=== PATIENT | male | born 1965 | race Caucasian/White ===

== ENCOUNTER 2023-07-31 15:42 | Inpatient (IN) | payer OTHER, BC ==
[2023-07-31 17:37] VITALS: BMI 24.3
[2023-07-31] MEDS ORDERED: P-EPHED 60MG/TRIPROLIDI 2.5MG TABLET PO PRN (18:25)
[2023-07-31] MEDS ORDERED: IBUPROFEN 400 MG TABLET (FP) PO PRN (18:25)
[2023-07-31] MEDS ORDERED: IBUPROFEN 600 MG TABLET (FP) PO PRN (18:25)
[2023-07-31] MEDS ORDERED: ONDANSETRON *ODT* 4 MG TABLET SL PRN (18:25)
[2023-07-31] MEDS ORDERED: NALOXONE HCL (KLOXXADO) 8 MG SPRAY NS PRN (18:25)
[2023-07-31] MEDS ORDERED: guaiFENesin 600 MG TABLET.ER (FP) PO PRN (18:25)
[2023-07-31] MEDS ORDERED: MAGNESIUM HYDROX 2400MG/30ML ORAL SUSPENSION 30 ML CUP PO PRN (18:25)
[2023-07-31] MEDS ORDERED: MAG HYDROX/AL HYDROX/SIMETH 30 ML UNIT-DOSE CUP PO PRN (18:25)
[2023-07-31] MEDS ORDERED: NALOXONE HCL 0.4 MG/ML VIAL IM PRN (18:25)
[2023-07-31] MEDS ORDERED: BENZONATATE 200 MG CAPSULE PO PRN (18:25)
[2023-07-31] MEDS ORDERED: BENZOCAINE/MENTHOL (CHLORASEPTIC ) LOZENGE MM PRN (18:25)
[2023-07-31] MEDS ORDERED: BISMUTH SUBSALICYLATE 524 MG/30 ML PO PRN (18:25)
[2023-07-31] MEDS ORDERED: POLYETHYLENE GLYCOL (HEALTHYLAX) 3350 17 GM PACKET PO PRN (18:25)
[2023-07-31] MEDS ORDERED: LOPERAMIDE HCL 2 MG CAPSULE PO PRN (18:25)
[2023-07-31] MEDS ORDERED: ACETAMINOPHEN 325 MG TABLET (FP) PO PRN (18:25)
[2023-07-31] MEDS ORDERED: DICYCLOMINE HCL 10 MG CAPSULE PO PRN (18:25)
[2023-07-31] MEDS: hydrOXYzine PAMOATE 25 MG CAPSULE (FP) PO PRN (19:31)
[2023-07-31] MEDS: NICOTINE POLACRILEX 2 MG GUM BUC PRN ×2 (19:33→22:10)
[2023-07-31] MEDS: MELATONIN 5 MG TABLETS PO SCH (22:08)
[2023-07-31] MEDS: THIAMINE HCL 100 MG TABLET (FP) PO SCH (22:08)
[2023-07-31] MEDS: METHOCARBAMOL 500 MG TABLET PO PRN (22:09)
[2023-08-01] MEDS: NICOTINE POLACRILEX 2 MG GUM BUC PRN ×3 (08:54→21:03)
[2023-08-01] MEDS: NICOTINE 14 MG/24 HOURS TOPICAL PATCH TD SCH (10:17)
[2023-08-01] MEDS: hydrOXYzine PAMOATE 25 MG CAPSULE (FP) PO PRN ×2 (10:18→17:28)
[2023-08-01] MEDS: PRENATAL VITAMINS W/ FOLIC ACID TABLET (FP) PO SCH (10:18)
[2023-08-01] MEDS: METHOCARBAMOL 500 MG TABLET PO PRN ×2 (10:18→17:28)
[2023-08-01] MEDS ORDERED: methaDONE HCL 10 MG TABLET (FOR DETOX USE ONLY) PO ONE (11:11)
[2023-08-01 11:13] LABS: HEMATOCRIT 50.9 % (35.4-49); HEMOGLOBIN 16.4 GM/dL (11.7-16.9); MCH 29.4 pg (25.7-33.7); MCHC 32.2 g/dl (32.0-35.9); MEAN CELL VOLUME 91.2 fl (80-96); MEAN PLT VOLUME 8.4 fl (7.5-11.1); PLATELET COUNT 286 10^3/uL (134-434); RBC 5.58 M/mm3 (4.00-5.60); RDW 13.6 % (11.9-15.9); WHITE BLOOD COUNT 11.7 K/mm3 (4.0-10.0)
[2023-08-01] MEDS: cloNIDine HCL 0.1 MG TABLET PO PRN ×2 (11:27→18:49)
[2023-08-01 11:59] LABS: POTASSIUM 4.6 mmol/L (3.5-5.1)
[2023-08-01 12:13] LABS: CALCIUM 9.9 mg/dL (8.5-10.1)
[2023-08-01 12:14] LABS: ALBUMIN 4.1 g/dl (3.4-5.0); BLOOD UREA NITROGEN 14.3 mg/dL (7-18)
[2023-08-01 12:20] LABS: CREATININE 1.1 mg/dL (0.55-1.3)
[2023-08-01 12:21] LABS: TOT PROT 7.6 g/dl (6.4-8.2)
[2023-08-01] MEDS: MELATONIN 5 MG TABLETS PO SCH (22:10)
[2023-08-01] MEDS: THIAMINE HCL 100 MG TABLET (FP) PO SCH (22:10)
[2023-08-02] MEDS: METHOCARBAMOL 500 MG TABLET PO PRN ×3 (00:42→20:52)
[2023-08-02] MEDS: cloNIDine HCL 0.1 MG TABLET PO PRN ×2 (00:42→20:52)
[2023-08-02] MEDS: NICOTINE POLACRILEX 2 MG GUM BUC PRN ×2 (07:23→17:14)
[2023-08-02] MEDS: NICOTINE 14 MG/24 HOURS TOPICAL PATCH TD SCH (09:08)
[2023-08-02] MEDS: PRENATAL VITAMINS W/ FOLIC ACID TABLET (FP) PO SCH (09:12)
[2023-08-02] MEDS: hydrOXYzine PAMOATE 25 MG CAPSULE (FP) PO PRN ×2 (09:12→17:14)
[2023-08-02] MEDS: THIAMINE HCL 100 MG TABLET (FP) PO SCH (21:13)
[2023-08-02] MEDS: SUVOREXANT 10 MG TABLET PO PRN (22:51)
[2023-08-03] MEDS: MELATONIN 5 MG TABLETS PO SCH (00:13)
[2023-08-03] MEDS: METHOCARBAMOL 500 MG TABLET PO PRN (06:32)
[2023-08-03] MEDS: cloNIDine HCL 0.1 MG TABLET PO PRN (06:32)
[2023-08-03] MEDS: NICOTINE POLACRILEX 2 MG GUM BUC PRN ×3 (06:32→22:15)
[2023-08-03] MEDS: hydrOXYzine PAMOATE 25 MG CAPSULE (FP) PO PRN (06:32)
[2023-08-03 09:23] LABS: BASO % 0.5 % (0-2.0); EOS % 2.1 % (0-4.5); HEMOGLOBIN 17.6 GM/dL (11.7-16.9); LYMPH % 23.8 % (8-40); MCH 31.1 pg (25.7-33.7); MCHC 35.2 g/dl (32.0-35.9); MEAN CELL VOLUME 88.4 fl (80-96); MEAN PLT VOLUME 8.5 fl (7.5-11.1); MONO % 6.9 % (3.8-10.2); NEUT % 66.7 % (42.8-82.8); PLATELET COUNT 294 10^3/uL (134-434); RBC 5.66 M/mm3 (4.00-5.60); RDW 13.3 % (11.9-15.9); WHITE BLOOD COUNT 13.8 K/mm3 (4.0-10.0)
[2023-08-03] MEDS ORDERED: MELATONIN 5 MG TABLETS PO SCH (09:45)
[2023-08-03] MEDS: NICOTINE 14 MG/24 HOURS TOPICAL PATCH TD SCH (09:49)
[2023-08-03] MEDS: PRENATAL VITAMINS W/ FOLIC ACID TABLET (FP) PO SCH (09:49)
[2023-08-03] MEDS: diazePAM 5 MG TABLET PO PRN ×3 (09:55→22:12)
[2023-08-03] MEDS ORDERED: methaDONE HCL 10 MG TABLET (FOR DETOX USE ONLY) PO ONE (10:00)
[2023-08-03] MEDS ORDERED: METHOCARBAMOL 750 MG TAB PO PRN (10:43)
[2023-08-03] MEDS: ASPIRIN COATED 81 MG TABLET.EC PO SCH (17:14)
[2023-08-03 19:21] LABS: URINE APPEARANCE CLOUDY; URINE BILIRUBIN NEGATIVE (NEGATIVE); URINE COLOR DK YELLOW; URINE GLUCOSE (UA) NEGATIVE (NEGATIVE); URINE KETONE TRACE (NEGATIVE); URINE LEUK ESTERASE NEGATIVE (NEGATIVE); URINE NITRITE NEGATIVE (NEGATIVE); URINE PROTEIN NEGATIVE (NEGATIVE)
[2023-08-03] MEDS ORDERED: diphenhydrAMINE HCL 50 MG CAPSULE PO ONE (22:00)
[2023-08-03] MEDS: THIAMINE HCL 100 MG TABLET (FP) PO SCH (22:12)
[2023-08-03] MEDS: SUVOREXANT 10 MG TABLET PO PRN (22:13)
[2023-08-04 06:34] VITALS: RESP 18
[2023-08-04 09:35] VITALS: BP 106/70; PULSE 92; TEMP 97.5
[2023-08-04] MEDS: PRENATAL VITAMINS W/ FOLIC ACID TABLET (FP) PO SCH (10:33)
[2023-08-04] MEDS: ASPIRIN COATED 81 MG TABLET.EC PO SCH (10:33)
[2023-08-04] MEDS: NICOTINE 14 MG/24 HOURS TOPICAL PATCH TD SCH (10:33)
[2023-08-05] MEDS ORDERED: methaDONE HCL 10 MG TABLET (FOR DETOX USE ONLY) PO ONE (10:00)
== END 2023-08-04 11:05 | disposition left against medical advice (07) | DRG 894 ==
LOC: YASAS 15:42 → Y6N 19:03
PROVIDERS: ADMIT Allergy & Immunology; ATTEND Surgery
PROC: HZ2ZZZZ Detoxification Services for Substance Abuse Treatment (ICD-10-PCS; principal; 2023-07-31)
DX: F11.23 Opioid dependence with withdrawal (principal); F19.280 Other psychoactive substance dependence with psychoactive substance-induced anxiety disorder; F19.282 Other psychoactive substance dependence with psychoactive substance-induced sleep disorder; Z59.00 Homelessness unspecified; F14.10 Cocaine abuse, uncomplicated; F17.210 Nicotine dependence, cigarettes, uncomplicated; D72.829 Elevated white blood cell count, unspecified; M25.511 Pain in right shoulder; M54.50 Low back pain, unspecified; G89.29 Other chronic pain; Z56.0 Unemployment, unspecified
CPT/HCPCS: 36415; 80053; 81003; 85025; 85027; 86780; 87635; Q0162